=== PATIENT | male | born 2000 | race Caucasian/White ===

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

== ENCOUNTER 2020-05-30 23:33 | Emergency (ER) | payer OTHER, SELFPAY ==
[2020-05-31] MEDS ORDERED: Lidocaine 1% (PF) 30 ML VIAL ONE (01:02)
[2020-05-31] MEDS ORDERED: Bacitracin 1 PK ONE (02:13)
== END 2020-05-31 02:29 | disposition home or self-care (01) ==
LOC: ERS 23:33
DX: S61.411A Laceration without foreign body of right hand, initial encounter (principal); S61.511A Laceration without foreign body of right wrist, initial encounter; S91.112A Laceration without foreign body of left great toe without damage to nail, initial encounter; F17.210 Nicotine dependence, cigarettes, uncomplicated; W25.XXXA Contact with sharp glass, initial encounter
CPT/HCPCS: 12002; J2001